=== PATIENT | female | born 1985 | race Hispanic/Latino ===

== ENCOUNTER 2017-07-03 19:58 | Outpatient (CLI) | payer MEDICAID ==
[2017-07-03 22:03] VITALS: BP 122/67
== END 2017-07-03 22:31 | disposition home or self-care (01) ==
LOC: TRG 19:58
PROVIDERS: ATTEND Obstetrics & Gynecology
DX: Z34.93 Encounter for supervision of normal pregnancy, unspecified, third trimester (principal); Z87.891 Personal history of nicotine dependence; Z3A.39 39 weeks gestation of pregnancy
CPT/HCPCS: 59025

== ENCOUNTER 2017-08-28 08:17 | Day surgery (SDC) | payer MEDICAID ==
--- NOTE | 2017-08-28 07:46 | Short Stay Summary ---
Short Stay Documentation Date of service: 08/28/17 Narrative H&P: Patient is a 32 year old who presents for elective sterilization at approximately 7 weeks post . she has no medical issues and has had an uncomplicated course. - History H&P: obtained from office Past Medical History: No medical history Past Surgical History: No surgical history Social history: single - Allergies and Medications Current Medications: Allergies banana Allergy (Verified 08/26/17 16:38) Anaphylaxis codeine Adverse Reaction (Verified 08/26/17 16:38) Anaphylaxis Home Medications Medication Instructions Recorded Confirmed Last Taken Type No Known Home Medications [No 08/26/17 08/26/17 Unknown History Reported Home Medications] - Physical exam General appearance: no acute distress HEENT: Atraumatic Lungs: Clear to auscultation, Normal air movement Breasts: deferred Heart: Regular rate, Normal S1, Normal S2 Gastrointestinal: normal, normoactive bowel sounds Female Genitourinary: normal Rectal Exam: deferred Extremities: No edema - Brief post op/procedure progress note Date of procedure: 08/28/17 Pre-op diagnosis: Undesired fertility Post-op diagnosis: same Procedure: Laparoscopic bilateral salpingectomy Anesthesia: GETA Findings: Normal appearing uterus tubes and ovaries Surgeon: JUAN SHEA Estimated blood loss: minimal Pathology: list (right and left fallopian tubes) Specimen disposition: to lab Condition: stable - Hospital course Hospital course: unremarkable - Disposition Condition at discharge: Good Disposition: [id number] TO HOME OR SELFCARE Short Stay Discharge Plan Activity: advance as tolerated Weight Bearing Status: Weight Bear as Tolerated Diet: regular Wound: keep clean and dry Follow up with: JUAN SHEA MD [Primary Care Provider] - 14 Days Prescriptions: HYDROcodone/APAP 7.5-325 [[place] 7.5/325] 1 each PO Q6HR PRN #20 tablet PRN Reason: Pain Ibuprofen [Motrin] 800 mg PO Q8HR PRN #30 tablet PRN Reason: Pain
[~2017-08-28 08:17] MED LIST: ANCEF/STERILE WATER 2 GM/20 ML 2 GM/20 ML SYRINGE IV NR
[2017-08-28 09:44] LABS: Hematocrit 31.7 % (30.3-42.9); Hemoglobin 10.7 gm/dl (10.1-14.3)
[2017-08-28] MEDS ORDERED: MARCAINE 0.25% INFILTRATI ONE ×2 (09:53→11:47)
[2017-08-28] MEDS ORDERED: METHYLENE BLUE ONE (09:54)
--- NOTE | 2017-08-28 10:19 | Anesthesia Consultation ---
Anesthesia Consult and Med Hx Date of service: 08/28/17 - Airway Anesthetic Teeth Evaluation: Good ROM Head & Neck: Adequate Mental/Hyoid Distance: Adequate Mallampati Class: Class II Intubation Access Assessment: Probably Good - Pulmonary Exam CTA: Yes - Cardiac Exam Cardiac Exam: RRR - Pre-Operative Health Status ASA Pre-Surgery Classification: ASA2 Proposed Anesthetic Plan: General - Pulmonary Hx Smoking: Yes (former) Hx Asthma: No COPD: No Hx Pneumonia: No - Cardiovascular System Hx Hypertension: No - Central Nervous System Hx Seizures: Yes (febrile seizures as a child) Hx Psychiatric Problems: No - Endocrine Hx Renal Disease: No Hx End Stage Renal Disease: No Hx Hypothyroidism: No Hx Hyperthyroidism: No - Hematic Hx Anemia: No Hx Sickle Cell Disease: No - Other Systems Hx Alcohol Use: Yes (occas) Hx Cancer: No Hx Obesity: Yes
[2017-08-28] MEDS ORDERED: PERCOCET 5/325 PO PRN (10:20)
--- NOTE | 2017-08-28 10:20 | Anesthesia Day of Surgery ---
Anesthesia Day of Surgery - Day of Surgery Patient Examined: Yes Patient H&P Reviewed: Yes Patient is NPO: Yes
[2017-08-28] MEDS ORDERED: PEPCID PO NR (11:00)
[2017-08-28] MEDS ORDERED: VERSED IV NR (11:00)
[2017-08-28] MEDS ORDERED: LACTATED RINGERS 1,000 ML IV SCH (11:00)
[2017-08-28] MEDS ORDERED: ZOFRAN IV PRN (11:00)
[2017-08-28] MEDS ORDERED: ZEMURON IV ONE (11:02)
[2017-08-28] MEDS ORDERED: SUBLIMAZE ONE ×2 (11:02→11:38)
[2017-08-28] MEDS ORDERED: XYLOCAINE MPF 2% ONE (11:02)
[2017-08-28] MEDS ORDERED: DIPRIVAN 10 MG/ML IV ONE ×2 (11:02→11:17)
[2017-08-28] MEDS ORDERED: DECADRON ONE (11:26)
[2017-08-28] MEDS ORDERED: ZOFRAN ONE (11:26)
[2017-08-28] MEDS ORDERED: NEOSTIGMINE ONE (11:41)
[2017-08-28] MEDS ORDERED: ROBINUL ONE (11:41)
[2017-08-28] MEDS ORDERED: NACL 0.9% IR ONE (11:47)
[2017-08-28] MEDS ORDERED: TORADOL ONE (12:00)
--- NOTE | 2017-08-28 12:12 | Operative Report ---
Operative Report Operative Report: Preoperative diagnosis: Undesired fertility Postoperative diagnosis: Same Procedure: Bilateral laparoscopic salpingectomy Surgeon: Preethi Meng Anesthesia: General EBL: Minimal IV fluids: 1100 Urine output:[100] Findings:[Normal uterus tubes and ovaries] Specimens: Portion of right and left fallopian tube Complications: None The patient was properly identified as herself. She was then taken to the OR with IV running and in place. She was given general anesthesia without difficulty. She was placed in a dorsal lithotomy position. She was then prepped and draped in normal sterile fashion. Attention was turned to the patient's vagina. Her bladder was drained of clear urine with a red rubber catheter. The speculum was then placed the patient's vagina. The cervix was visualized and grasped with tenaculum. The acorn cannula was then inserted. The surgeon's gloves were changed and attention turned to the patient's abdomen. A small incision was made in the patient's umbilicus incision a 5 mm trocar was placed. The laparoscope confirmed intra-abdominal placement. The abdomen was insufflated with CO2 gas to approximately 25 mmHg. Both fallopian tubes were identified. With direct visualization a second trocar was placed through an incision in the left lower quadrant. Both tubes were found and followed out to the fimbriated ends. Each tube was cauterized at the portion nearest the cornua, then cauterized across the broad ligament until the tube was completely detached. A piece of Surgicel was placed at the cornu of the right tube to help control some minor oozing. There was excellent hemostasis at the end of this portion of the procedure. Each tube was handed off for pathology. At this point the abdomen was deflated. All instruments were then removed from the abdomen. The incisions were then closed with 4-0 Monocryl. The incisions were also injected with quarter percent Marcaine. The patient tolerated the procedure well she was then awakened and taken recovery in stable condition. Sponge needle and instrument counts were correct 2.
[2017-08-28] MEDS: DILAUDID IV PRN ×2 (12:40→12:55)
--- NOTE | 2017-08-28 13:15 | Post Anesthesia Evaluation ---
- Post Anesthesia Evaluation Patient Participated: Yes Airway Patent: Yes Stable Respiratory Function: Yes Temp > 96.8F: Yes Pain Manageable: Yes Adequeate Hydration: Yes Anesthesia Complications: No
[2017-08-28] MEDS ORDERED: NORCO 7.5/325 PO PRN (13:23)
[2017-08-28 13:50] VITALS: BP 118/69
== END 2017-08-28 13:58 | disposition home or self-care (01) ==
LOC: OR 08:17
PROVIDERS: ATTEND Obstetrics & Gynecology
DX: Z30.2 Encounter for sterilization (principal); N83.8 Other noninflammatory disorders of ovary, fallopian tube and broad ligament; E66.9 Obesity, unspecified; Z88.5 Allergy status to narcotic agent; Z91.018 Allergy to other foods; Z87.891 Personal history of nicotine dependence; Z98.890 Other specified postprocedural states; Z72.89 Other problems related to lifestyle
CPT/HCPCS: 36415; 58670; 81025; 85014; 85018; 88302; J0690; J1100; J1170; J1885; J2250; J2405; J2704; J2710; J3010; J7120; Q9968